=== PATIENT | male | born 1975 | race Caucasian/White ===

== ENCOUNTER 2018-10-24 11:32 | Emergency (ER) | payer OTHER ==
[~2018-10-24] VITALS: Ht 177.8 cm; Wt 109.1 kg
[2018-10-24] MEDS ORDERED: ALPR0.5T8 PO (11:37)
[2018-10-24 13:20] VITALS: BP 131/98
== END 2018-10-24 13:40 | disposition home or self-care (01) ==
LOC: EMS 11:34
DX: F41.9 Anxiety disorder, unspecified (principal); R45.850 Homicidal ideations; F10.20 Alcohol dependence, uncomplicated; F12.10 Cannabis abuse, uncomplicated; M79.672 Pain in left foot; Y90.9 Presence of alcohol in blood, level not specified